=== PATIENT | female | born 1970 | race Caucasian/White ===

== ENCOUNTER 2019-04-21 20:25 | Emergency (ER) | payer BC ==
[2019-04-21] MEDS ORDERED: MORPHINE 4 MG/ML SYR ONE (21:18)
[2019-04-21] MEDS ORDERED: NITROGLYCERIN 0.4 MG/TAB SL ONE (21:18)
[2019-04-21] MEDS ORDERED: ONDANSETRON 4 MG/2 ML VIAL ONE (21:18)
[2019-04-21] MEDS ORDERED: METOPROLOL TARTRATE 5 MG/5 ML INJ IV ONE (21:19)
[2019-04-21 21:40] LABS: Arterial Blood Carboxyhemoglob 0.7 % (0-1.5); Blood Gas Oxyhemoglobin 94.4 % (94-97); Blood O2 Saturation 95.9 % (92-98.5)
[2019-04-21 21:48] LABS: Basophils % 0.8 % (0-1.3); Hematocrit 44.6 % (36.0-45.0); Lymphocytes % 25.6 % (15.3-44.8); MPV 9.8 fL (7.6-11.3); RBC Red Blood Cell Count 4.94 M/uL (3.86-4.86)
[2019-04-21 21:56] LABS: Urine Blood TRACE (NEG); Urine Glucose NEGATIVE (NEG); Urine Protein NEGATIVE (NEG)
[2019-04-21 21:57] LABS: Protime INR 1.01
[2019-04-21 22:16] LABS: ALT/SGPT 46 U/L (12-78); AST/SGOT 45 U/L (15-37); Albumin 4.4 g/dL (3.4-5.0); Alkaline Phosphatase 76 U/L (45-117); BUN Blood Urea Nitrogen 15 mg/dL (7-18); Bicarbonate 25 mmol/L (21-32); Bilirubin Direct 0.2 mg/dL (0-0.2); Bilirubin Total 0.9 mg/dL (0.2-1.0); Glucose Level 100 mg/dL (74-106); Magnesium 2.3 mg/dL (1.8-2.4); NT PRO-BNP 24 pg/mL (<125); Potassium 3.3 mmol/L (3.5-5.1); Protein, Total 8.5 g/dL (6.4-8.2); Sodium Level 138 mmol/L (136-145); Troponin (Emerg Dept Use Only) < 0.02 ng/mL (0.0-0.045)
[2019-04-21] MEDS ORDERED: NA CHLORIDE 0.9% 1,000 ML ONE (23:05)
--- NOTE | 2019-04-21 23:06 | RAD REPORT ---
EXAM DESCRIPTION: Juan Manuel Single View04/21/2019 9:57 pm CLINICAL HISTORY: Chest pain COMPARISON: none FINDINGS: The lungs appear clear of acute infiltrate. The heart is normal size IMPRESSION: No acute abnormalities displayed
[2019-04-21] MEDS ORDERED: POTASSIUM CL SA 10 MEQ TAB PO ONE (23:26)
[2019-04-22 00:16] LABS: Absolute Lymphocytes (CBC) 3.7 K/uL (0.7-4.9); Basophils % 1.4 % (0-1.3); Hematocrit 41.5 % (36.0-45.0); Lymphocytes % 26.6 % (15.3-44.8); MPV 9.5 fL (7.6-11.3)
--- NOTE | 2019-04-22 00:49 | ER ---
Nurse's Notes [facility] [place] Name: Sara Augustin Age: 49 yrs Sex: Female : 1970 Arrival Date: 04/21/2019 Time: 20:27 Bed 5 Private MD: Diagnosis: Chest pain. Hypertension. Hypothroidism Presentation: 04/21 20:47 Presenting complaint: Patient states: that she is having muscle spasms to back around fc to chest and occasionally left arm. Also having hot flashes. Positive nausea but not vomiting. Also diarrhea. Pt states she just does not feel well. Transition of care: patient was not received from another setting of care. Onset of symptoms was April 18, 2019. Risk Assessment: Do you want to hurt yourself or someone else? Patient reports no desire to harm self or others. Initial Sepsis Screen:. Care prior to arrival: None. 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 - Social history:: Smoking status: Patient uses tobacco products, denies chronic smoking, but will smoke occasionally, Patient uses alcohol, occasionally. Patient uses street drugs, marijuana. - Ebola Screening: : Patient negative for fever greater than or equal to 101.5 degrees Fahrenheit, and additional compatible Ebola Virus Disease symptoms Patient denies exposure to infectious person Patient denies travel to an Ebola-affected area in the 21 days before illness onset. Screenin:53 Abuse screen: Denies threats or abuse. Nutritional screening: No deficits noted. fc Tuberculosis screening: No symptoms or risk factors identified. Fall Risk None identified. Assessment: 21:06 General: Appears uncomfortable, Behavior is appropriate for age. Pain: Complains of ea pain in chest Pain radiates to back. Pain: Quality of pain is described as pressure. Neuro: Level of Consciousness is awake, alert, obeys commands, Oriented to person, place, time, situation. Cardiovascular: Patient's skin is warm and dry. Respiratory: Airway is patent Respiratory effort is even, unlabored, Respiratory pattern is regular, symmetrical. Derm: Skin is pink, warm \T\ dry. 21:45 Reassessment: No changes from previously documented assessment. Patient is alert, bb oriented x 3, equal unlabored respirations, skin warm/dry/pink. awaiting diagnostic results family at bedside. 22:18 Reassessment: Patient is alert, oriented x 3, equal unlabored respirations, skin bb warm/dry/pink. pt resting quietly, states she feels dehydrated EDP notified, family at bedside. 23:56 Reassessment: Patient is alert, oriented x 3, equal unlabored respirations, skin bb warm/dry/pink. pt resting quietly, family at bedside. 04/22 00:00 Reassessment: Patient and/or family updated on plan of care and expected duration. Pain ea level reassessed. Patient is alert, oriented x 3, equal unlabored respirations, skin warm/dry/pink. Patient states feeling better. 01:40 Reassessment: Patient and/or family updated on plan of care and expected duration. Pain ea level reassessed. Patient is alert, oriented x 3, equal unlabored respirations, skin warm/dry/pink. Discharge instruction given to patient, verbalize the understanding of instruction. Pt left ED ambulatory accompanied by family, pt tolerating well. Patient states feeling better. Vital Signs: 04/21 20:51 BP 196 / 114 RA Sitting; Pulse 100; Resp 20; Temp 98.7(TE); Pulse Ox 98% on R/A; Weight fc 95.25 kg (R); Height 5 ft. 5 in. (165.10 cm) (R); Pain 8/10; 20:53 BP 213 / 117 LA Sitting; fc 21:46 BP 161 / 103; Pulse 91; Resp 14 S; Pulse Ox 96% on R/A; bb 22:19 BP 139 / 94; Pulse 85; Resp 16 S; Pulse Ox 95% on R/A; bb 23:57 BP 169 / 103; Pulse 77; Resp 16 S; Pulse Ox 97% on R/A; bb 04/22 01:30 BP 174 / 99; Pulse 70; Resp 16; Temp 97.6(TE); Pulse Ox 97% on R/A; ea 04/21 20:51 Body Mass Index 34.95 (95.25 kg, 165.10 cm) ED Course: 04/21 20:27 Patient arrived in ED. cl3 20:49 Triage completed. fc 20:51 Arm band placed on Patient placed in an exam room, on a stretcher. fc 21:03 Avery Urias MD is Attending Physician. pkl 21:06 Alida Boswell, LACY is Primary Nurse. ea 21:07 Patient maintains SpO2 saturation greater than 95% on room air. ea 21:08 Patient has correct armband on for positive identification. Bed in low position. Call ea light in reach. Side rails up X2. monitor car operator on. Pulse ox on. NIBP on. 21:20 Initial lab(s) drawn, by me, sent to lab. Urine collected:. Inserted saline lock: 20 bb gauge in right hand, using aseptic technique. Blood collected. Missed attempt(s): 20 gauge in right upper arm. Bleeding controlled, band aid applied, catheter tip intact. 21:57 XRAY Chest (1 view) In Process Unspecified. EDMS 04/22 01:49 No provider procedures requiring assistance completed. IV discontinued, intact, ea bleeding controlled, No redness/swelling at site. Pressure dressing applied. Administered Medications: 04/21 21:20 Drug: Nitroglycerin 0.4 mg Route: Sublingual; bb 04/22 00:00 Follow up: Response: No adverse reaction ea 04/21 23:07 Not Given (Patient Refused): morphine 4 mg IVP once; RASS on ADMIN: Combtv4, Very bb Agttd3, Agttd2, Rstlss1, AlertClm0, Drwsy-1, Lt Sdtn-2, Mod Sdtn-3, Dp Sdtn-4, UnArsble-5 23:07 Not Given (Patient Refused): Zofran 4 mg IVP once; over 2 minutes bb 23:07 Drug: NS 0.9% 1000 ml Route: IV; Rate: 1 bolus; Site: right antecubital; bb 23:27 Drug: K-Dur 40 mEq Route: PO; bb 04/22 00:00 Follow up: Response: No adverse reaction ea Outcome: 00:48 Discharge ordered by . pkl 01:49 Discharged to home ambulatory, with family. ea :49 Condition: stable 01:49 Discharge instructions given to patient, Instructed on discharge instructions, follow up and referral plans. medication usage, Demonstrated understanding of instructions, follow-up care, medications, Prescriptions given X 2. 01:50 Patient left the ED. yoan Signatures: Dispatcher [employer] EDAvery Hernandez MD MD pkl Chretien, Felicia RN RN Tri Carbajal RN RN Alida Boudreaux RN RN ea Lewis, Charde cl3
--- NOTE | 2019-04-22 00:49 | EDPHYS ---
Physician Documentation [facility] Name: Sara Augustin Age: 49 yrs Sex: Female : 1970 Arrival Date: 04/21/2019 Time: 20:27 Bed 5 Private MD: ED Physician Avery Urias HPI: 04/21 21:26 This 49 yrs old Female presents to ER via Ambulatory with complaints of Chest Pain, pkl Shortness Of Breath. 21:26 The patient or guardian reports chest pain that is located primarily in the substernal pkl area. Onset: 4 day(s) ago, and became worse today. The pain radiates to the left arm, left back. Associated signs and symptoms: Pertinent positives: shortness of breath. The chest pain is described as squeezing. The patient has not experienced similar symptoms in the past. 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 - Social history:: Smoking status: Patient uses tobacco products, denies chronic smoking, but will smoke occasionally, Patient uses alcohol, occasionally. Patient uses street drugs, marijuana. - Ebola Screening: : Patient negative for fever greater than or equal to 101.5 degrees Fahrenheit, and additional compatible Ebola Virus Disease symptoms Patient denies exposure to infectious person Patient denies travel to an Ebola-affected area in the 21 days before illness onset. ROS: 21:26 Eyes: Negative for injury, pain, redness, and discharge, ENT: Negative for injury, pkl pain, and discharge, Neck: Negative for injury, pain, and swelling. 21:26 Cardiovascular: Positive for chest pain. 21:26 Respiratory: Positive for shortness of breath. 21:26 Abdomen/GI: Positive for nausea, diarrhea, Negative for abdominal pain. 21:26 Back: Negative for pain at rest. 21:26 : Negative for urinary symptoms. 21:26 MS/extremity: Negative for acute changes. 21:26 Skin: Negative for rash. 21:26 Neuro: Negative for altered mental status, loss of consciousness. Exam: 21:26 Head/Face: Normocephalic, atraumatic. Eyes: Pupils equal round and reactive to light, pkl extra-ocular motions intact. Lids and lashes normal. Conjunctiva and sclera are non-icteric and not injected. Cornea within normal limits. Periorbital areas with no swelling, redness, or edema. ENT: Nares patent. No nasal discharge, no septal abnormalities noted. Tympanic membranes are normal and external auditory canals are clear. Oropharynx with no redness, swelling, or masses, exudates, or evidence of obstruction, uvula midline. Mucous membranes moist. Neck: Trachea midline, no thyromegaly or masses palpated, and no cervical lymphadenopathy. Supple, full range of motion without nuchal rigidity, or vertebral point tenderness. No Meningismus. Chest/axilla: Normal chest wall appearance and motion. Nontender with no deformity. No lesions are appreciated. Cardiovascular: Regular rate and rhythm with a normal S1 and S2. No gallops, murmurs, or rubs. Normal PMI, no JVD. No pulse deficits. Respiratory: Lungs have equal breath sounds bilaterally, clear to auscultation and percussion. No rales, rhonchi or wheezes noted. No increased work of breathing, no retractions or nasal flaring. Abdomen/GI: Soft, non-tender, with normal bowel sounds. No distension or tympany. No guarding or rebound. No evidence of tenderness throughout. Back: No spinal tenderness. No costovertebral tenderness. Full range of motion. Skin: Warm, dry with normal turgor. Normal color with no rashes, no lesions, and no evidence of cellulitis. MS/ Extremity: Pulses equal, no cyanosis. Neurovascular intact. Full, normal range of motion. Neuro: Awake and alert, GCS 15, oriented to person, place, time, and situation. Cranial nerves II-XII grossly intact. Motor strength 5/5 in all extremities. Sensory grossly intact. Cerebellar exam normal. Normal gait. Vital Signs: 20:51 BP 196 / 114 RA Sitting; Pulse 100; Resp 20; Temp 98.7(TE); Pulse Ox 98% on R/A; Weight fc 95.25 kg (R); Height 5 ft. 5 in. (165.10 cm) (R); Pain 8/10; 20:53 BP 213 / 117 LA Sitting; fc 21:46 BP 161 / 103; Pulse 91; Resp 14 S; Pulse Ox 96% on R/A; bb 22:19 BP 139 / 94; Pulse 85; Resp 16 S; Pulse Ox 95% on R/A; bb 23:57 BP 169 / 103; Pulse 77; Resp 16 S; Pulse Ox 97% on R/A; bb 04/22 01:30 BP 174 / 99; Pulse 70; Resp 16; Temp 97.6(TE); Pulse Ox 97% on R/A; ea 04/21 20:51 Body Mass Index 34.95 (95.25 kg, 165.10 cm) fc MDM: 04/21 21:03 Patient medically screened. pkl 04/22 00:45 Data reviewed: vital signs, nurses notes, lab test result(s), EKG, radiologic studies, pkl plain films. ED course: Patient feeling much better. Advised to follow up with PCP next week. Patient understood instructions. 04/21 21:13 Order name: Basic Metabolic Panel; Complete Time: 23:05 pkl 04/21 21:13 Order name: CBC with Diff; Complete Time: 22:32 pkl 04/21 21:13 Order name: LFT's; Complete Time: 23:05 pkl 04/21 21:13 Order name: Magnesium; Complete Time: 23:05 pkl 04/21 21:13 Order name: NT PRO-BNP; Complete Time: 23:05 pkl 04/21 21:13 Order name: PT-INR; Complete Time: 22:32 pkl 04/21 21:13 Order name: Troponin (emerg Dept Use Only); Complete Time: 23:05 pkl 04/21 21:14 Order name: ABG; Complete Time: 22:32 pkl 04/21 21:14 Order name: TSH; Complete Time: 23:05 pkl 04/21 21:38 Order name: D-Dimer; Complete Time: 22:32 EDMS 04/21 21:44 Order name: Urine Dipstick--Ancillary (enter results); Complete Time: 22:32 em1 04/21 21:44 Order name: Urine --Ancillary (enter results); Complete Time: 22:32 em1 04/21 21:13 Order name: XRAY Chest (1 view); Complete Time: 23:53 pkl 04/21 21:13 Order name: EKG; Complete Time: 21:14 pkl 04/21 21:13 Order name: Cardiac monitoring; Complete Time: 21:44 pkl 04/21 21:13 Order name: EKG - Nurse/Tech; Complete Time: 21:44 pkl 04/21 21:13 Order name: IV Saline Lock; Complete Time: 21:44 pkl 04/21 21:13 Order name: Labs collected and sent; Complete Time: 21:44 pkl 04/21 22:36 Order name: T4 Free; Complete Time: 23:05 EDMS 04/21 23:53 Order name: EKG; Complete Time: 23:53 pkl 04/21 23:53 Order name: Troponin (emerg Dept Use Only); Complete Time: 00:43 pkl 04/21 23:53 Order name: CBC with Diff; Complete Time: 00:43 pkl 04/21 21:13 Order name: O2 Per Protocol; Complete Time: 21:44 pkl 04/21 21:13 Order name: O2 Sat Monitoring; Complete Time: :44 pkl Administered Medications: 04/21 21:20 Drug: Nitroglycerin 0.4 mg Route: Sublingual; bb 04/22 00:00 Follow up: Response: No adverse reaction ea 04/21 23:07 Not Given (Patient Refused): morphine 4 mg IVP once; RASS on ADMIN: Combtv4, Very bb Agttd3, Agttd2, Rstlss1, AlertClm0, Drwsy-1, Lt Sdtn-2, Mod Sdtn-3, Dp Sdtn-4, UnArsble-5 23:07 Not Given (Patient Refused): Zofran 4 mg IVP once; over 2 minutes bb 23:07 Drug: NS 0.9% 1000 ml Route: IV; Rate: 1 bolus; Site: right antecubital; bb 23:27 Drug: K-Dur 40 mEq Route: PO; bb 04/22 00:00 Follow up: Response: No adverse reaction ea Disposition: 04/22/19 00:48 Discharged to Home. Impression: Chest pain. Hypertension. Hypothroidism. - Condition is Stable. - Prescriptions for Levothyroxine 100 mcg Oral Tablet - take 1 tablet by ORAL route once daily take 30 minutes before breakfast; 30 tablet. Carvedilol 12.5 mg Oral Tablet - take 1 tablet by ORAL route 2 times per day with food; 60 tablet. - Medication Reconciliation Form, Thank You Letter, Antibiotic Education, Prescription Opioid Use form. - Follow up: Private Physician; When: 1 week; Reason: Re-evaluation by your physician. - Problem is new. - Symptoms have improved. Signatures: Dispatcher [employer] [facility] Avery Urias MD MD pkViktoriya Chowdhury RN Tri Gao RN RN bb Antunez, Elena, RN RN ea Corrections: (The following items were deleted from the chart) 04/21 21:38 21:26 D-DIMER+COAG.LAB.BRZ ordered. [facility] 04/22 01:50 00:48 04/22/2019 00:48 Discharged to Home. Impression: Chest pain. Hypertension. ea Hypothroidism. Condition is Stable. Forms are Medication Reconciliation Form, Thank You Letter, Antibiotic Education, Prescription Opioid Use. Follow up: Private Physician; When: 1 week; Reason: Re-evaluation by your physician. Problem is new. Symptoms have improved. pkl
[2019-04-22 02:41] VITALS: TEMP 98.7
[2019-04-22 02:46] VITALS: BP 169/103; O2SAT 97
--- NOTE | 2019-04-22 10:46 | EKG ---
Test Date: 2019-04-21 Test Time: 21:00:44 Site Identification Specialist: JENNIFER MEASUREMENT RESULTS: Intervals: Rate: 86 PA: 134 QRSD: 90 QT: 372 QTc: 445 [place]: P: 39 PA: 134 QRS: 3 T: -4 INTERPRETIVE STATEMENTS: Normal sinus rhythm Anterior infarct, age undetermined Abnormal ECG No previous ECG available for comparison Electronically Signed On 04-22-19 10:46:00 CDT by Brent Brewer
--- NOTE | 2019-04-22 10:46 | EKG ---
Test Date: 2019-04-22 Test Time: 00:04:32 [employer] Developer: BEKA MEASUREMENT RESULTS: Intervals: Rate: 73 AK: 138 QRSD: 86 QT: 406 QTc: 447 [place]: P: 40 AK: 138 QRS: 0 T: 56 INTERPRETIVE STATEMENTS: Normal sinus rhythm Anterior infarct, age undetermined Abnormal ECG Compared to ECG 04/21/2019 21:00:44 No significant changes Electronically Signed On 04-22-19 10:45:20 CDT by Brent Brewer
== END 2019-04-22 01:50 | disposition home or self-care (01) ==
LOC: ER 20:25
DX: R07.9 Chest pain, unspecified (principal); I10 Essential (primary) hypertension; E03.9 Hypothyroidism, unspecified
CPT/HCPCS: 93005 ×2; 85025 ×2; 80048; 36415; 83735; 81025; 85610; 85379; 80076; 84443; 81003; 84484; 84439; 83880; 71045; 82805; 99285; J7030; J2405